=== PATIENT | female | born 1965 | race Caucasian/White ===

== ENCOUNTER 2021-05-03 21:55 | Outpatient (RCR) | payer BC ==
[2021-04-29 06:47] VITALS: BP 142/88
[2021-04-29 14:13] VITALS: BP 134/84
[2021-04-29 22:03] VITALS: BP 128/96
[2021-04-30 06:09] VITALS: BP 148/94
[2021-04-30 14:15] VITALS: BP 143/86
[2021-04-30 22:00] VITALS: BP 135/83
[2021-05-01 06:44] VITALS: BP 106/85
[2021-05-01 14:26] VITALS: BP 123/83
[2021-05-01 14:38] VITALS: BP 123/83
[2021-05-01 15:54] VITALS: BP 122/80
[2021-05-01 21:57] VITALS: BP 134/83
[2021-05-02 06:15] VITALS: BP 128/83
[2021-05-02 07:38] VITALS: BP 124/87
[2021-05-02 14:03] VITALS: BP 131/79
[2021-05-02 21:50] VITALS: BP 131/86
[~2021-05-03] VITALS: Ht 167.6 cm; Wt 83.2 kg
[2021-05-03 06:41] VITALS: BP 133/89
[2021-05-03 07:50] VITALS: BP 139/74
[2021-05-03 14:11] VITALS: BP 131/76
[~2021-05-03 21:55] MED LIST: AMITRIPTYLINE H25 M2 PO; CITALOPRAM40 MG PO; NEURONTIN300 MG/CAP PO; OMEPRAZOLE40 MG PO
[2021-05-03 21:56] VITALS: BP 134/89
== END 2021-05-03 23:59 | disposition home or self-care (01) ==
LOC: AMSURD
DX: A87.9 Viral meningitis, unspecified (principal)
CPT/HCPCS: J0133; J7050